=== PATIENT | male | born 1980 | race Caucasian/White ===

== ENCOUNTER 2019-07-17 09:02 | Emergency (ER) | payer BC ==
[~2019-07-17] VITALS: Ht 190.5 cm; Wt 95.5 kg
[2019-07-17 09:08] VITALS: Ht 190.5 cm; Wt 95.5 kg
[2019-07-17 09:36] LABS: BASOPHILS 0 % (0-2); HEMATOCRIT 40.5 % (42.0-54.0); HEMOGLOBIN 14.3 g/dL (13.5-17.5); IMMATURE GRANULOCYTES 0.2 % (0-5); LYMPHOCYTES 23.1 % (15-50); MCH 29.5 pg (26.0-34.0); MCHC 35.3 g/dL (31.0-37.0); MCV 83.7 fL (80.0-100.0); MEAN PLATELET VOLUME 9.5 fL (7.4-10.4); MONOCYTES 5.7 % (2-11); PLATELET COUNT 176 10x3/uL (130-400); RBC 4.84 10x6/uL (4.20-6.10); WBC 6.1 10x3/uL (4.8-10.8)
[2019-07-17 09:44] LABS: APTT 33.3 SECONDS (22.8-39.4); INR 1.07 (0.85-1.17); PROTIME 13.4 SECONDS (11.6-15.0)
[2019-07-17 09:56] LABS: ALBUMIN 4.1 g/dL (3.4-5.0); ALKALINE PHOSPHATASE 40 U/L (46-116); ALT (SGPT) 21 U/L (10-68); BILIRUBIN - TOTAL 0.47 mg/dL (0.2-1.3); CALC OSMOLALITY 281 mosm/kg (275-300); CALCIUM 8.4 mg/dL (8.5-10.1); CARBON DIOXIDE 28.8 mmol/L (21.0-32.0); CHLORIDE - SERUM 106 mmol/L (98-107); CREATININE - SERUM 1.2 mg/dL (0.6-1.3); GLUCOSE 97 mg/dL (74-106); PROTEIN - SERUM 7.3 g/dL (6.4-8.2); SODIUM 140 mmol/L (136-145); UREA NITROGEN 21 mg/dL (7-18); eGFR NON AFRICAN AMERICAN 72 mL/min (90-120)
[2019-07-17 10:02] LABS: CKMB 1.4 U/L (0.0-3.6); CREATINE KINASE 260 UL (21-232); MAGNESIUM - SERUM 2.2 mg/dL (1.8-2.4)
[2019-07-17 10:03] LABS: TROPONIN-I < 0.017 ng/mL (0.000-0.060)
[2019-07-17] MEDS ORDERED: ACETAMINOPHEN500 M1 PO (13:08)
[2019-07-17] MEDS ORDERED: IBUPROFEN800 MG PO (13:08)
[2019-07-17] MEDS ORDERED: CYCLOBENZAPRINE10 MG PO (13:08)
[2019-07-17 13:17] VITALS: BP 126/74
== END 2019-07-17 13:19 | disposition home or self-care (01) ==
LOC: D.ER 09:02
PROVIDERS: Family Medicine
DX: R07.9 Chest pain, unspecified (principal)